=== PATIENT | male | born 1995 | race Caucasian/White ===

== ENCOUNTER 2023-03-09 01:01 | Emergency (ER) | payer OTHER, SELFPAY ==
[2023-03-09 01:06] VITALS: BP 128/64
[2023-03-09 01:19] VITALS: BMI 23.2
[2023-03-09 01:23] VITALS: BP 132/79
--- NOTE | 2023-03-09 01:23 | ED.GENMED ---
History of Present Illness
<TANIA Smith - Last Filed: 03/10/23 18:09>
General
Chief Complaint: Abdominal Pain
Source: patient
Exam Limitations: none
Time Seen by Provider: 03/09/23 01:13
Travel History
Have you had any contact with someone who has COVID-19?: No
Do you have any symptoms of coronavirus? Fever > 100 degrees, chills, cough, shortness of breath, sore throat, loss of taste or smell, muscle aches, or headache?: No
History of Present Illness
History of Present Illness:
This is a 27 year old male that is brought in by his parents with c/o left sided abd pain. States that this pain came on abruptly. States that he has pain in the left lower abd and some in the back. States that he has been vomiting and that the
pain started about 2 hours ago. Denies any fever, chills, chest pain, SOB, diarrhea, headache, dizziness, urinary burning.
Past History
<TANIA Smith - Last Filed: 03/10/23 18:09>
Past History
ED Past Medical History: Seizures and Other (Migraines)
ED Past Surgical History: Orthopedic (Left thumb surgery)
Social History
Tobacco: Former smoker
Alcohol: Occasional
Personal: Single
Living: with family
Review of Systems
<TANIA Smith - Last Filed: 03/10/23 18:09>
Review of Systems
All Other Systems: ROS reviewed and negative except as documented in HPI and ROS
Constitutional: Reports no symptoms; Denies fever or chills
EENT: Reports no symptoms
Respiratory: Reports no symptoms; Denies cough or trouble breathing
Cardiac: Reports no symptoms; Denies chest pain
ABD/GI: Reports abdominal pain, nausea and vomiting; Denies diarrhea
: Reports flank pain; Denies dysuria, frequency or urgency
Musculoskeletal: Reports no symptoms
Skin: Reports no symptoms
Neurological: Reports no symptoms; Denies dizzy or headache
Psychiatric: Reports no symptoms
Phy Exam
<TANIA Smith - Last Filed: 03/10/23 18:09>
General Physical Exam
General Presentation: moderate distress
General age: appears stated age
General Skin: warm and dry
General Habitus: normal
General Mental: alert
General Hydration: appears well hydrated
ENT Exam
ENT Exam: TM's normal, pharynx normal and neck supple
Eye Exam
Eye Exam: EOMI
Cardiovascular Exam
Cardiovascular Exam: no edema, normal peripheral pulses and bradycardia
Pulmonary Exam
Pulmonary Exam: lungs clear, no respiratory distress, no rales, chest non tender, no crackles, no rhonchi, no wheezing and no cough
Gastrointestinal Exam
Gastrointestinal Exam: soft, no organomegaly, no pulsatile mass, non distended, cva tenderness (Left sided), tender (LLQ tenderness with palpation) and other (Hypoactive bowel sounds)
Musculoskeletal Exam
Musculoskeletal Exam: full ROM and no edema
Skin Exam
Skin Exam: normal color, warm/dry, no rash and no petechia
Psychiatric Exam
Psychiatric Exam: normal mood/affect
Course
<TANIA Smith - Last Filed: 03/10/23 18:09>
Orders/Labs/Results
Orders:
Orders
03/09/23 01:22
0.9% Sodium Chloride 1000 ml [Nss] 1,000 ml IV BOLUS
HYDROmorphone [Dilaudid] 0.5 mg IV NOW STA
Ketorolac [Toradol] 30 mg IV NOW STA
Ondansetron Injectable [Zofran] 4 mg IV NOW STA
03/09/23 01:23
CT Abd/pel Without Iv Or Oral Urgent
Comment:
Reason For Exam: Left sided abd pain
03/09/23 01:30
Complete Blood Count/With Diff Urgent
Comprehensive Metabolic Panel Urgent
03/09/23 02:14
Tamsulosin [Flomax] 0.4 mg PO NOW STA
03/09/23 03:38
0.9% Sodium Chloride 500 ml [Nss] 500 ml IV BOLUS
03/09/23 04:11
HYDROmorphone [Dilaudid] 0.5 mg IV NOW STA
Ondansetron Injectable [Zofran] 4 mg IV NOW STA
03/09/23 05:19
Urinalysis Reflex To Culture Urgent
Date Specimen was Collected: 03/09/23
Time Specimen was Collected: :24
Urine Microscopic Reflex Cult Urgent
Urine Culture Urgent
HERLINDA Source: U
Specimen Description:
Date Specimen was Collected: 03/09/23
Time Specimen was Collected: :24
03/09/23 05:54
Cephalexin Monohydrate [Keflex] 500 mg PO NOW STA
Abnormal Lab Results
03/09/23 03/09/23
01:30 05:19
WBC 13.0 H 10^3/uL
(4.8-10.8)
MCH 31.8 H pg
(27.0-31.0)
MPV 10.8 H fL
(7.4-10.4)
Absolute Neuts (auto) 8.0 H 10^3/uL
(1.4-6.5)
Absolute Lymphs (auto) 4.2 H 10^3/uL
(1.2-3.4)
Absolute Monos (auto) 0.7 H 10^3/uL
(0.1-0.6)
Glucose 117 H mg/dl
(70-99)
Urine Ketones 3+ A
(Negative)
Ur Occult Blood Reflex 1+ A
(Negative)
Leukocyte Esterase Rfl Trace A
(Negative)
Urine RBC 7-10 A /HPF
(0-2)
Urine Bacteria (Reflex) Moderate A
(Negative)
03/09/23 01:30
03/09/23 01:30
Leukocytosis, Glucose nonfasting. Urine negative for infection.
Vital Signs
Initial and Last Documented VS:
Initial Vital Signs
Temp Pulse Resp Pulse Ox
98.6 F 54 18 99
03/09/23 01:04 03/09/23 01:04 03/09/23 01:04 03/09/23 01:04
Last Documented Vital Signs
Temp Pulse Resp BP Pulse Ox
98.5 F 52 16 110/62 98
03/09/23 04:21 03/09/23 06:16 03/09/23 06:16 03/09/23 06:16 03/09/23 06:16
<Bryan Miller, DO - Last Filed: 03/09/23 06:08>
Orders/Labs/Results
Orders:
Orders
03/09/23 01:22
0.9% Sodium Chloride 1000 ml [Nss] 1,000 ml IV BOLUS
HYDROmorphone [Dilaudid] 0.5 mg IV NOW STA
Ketorolac [Toradol] 30 mg IV NOW STA
Ondansetron Injectable [Zofran] 4 mg IV NOW STA
03/09/23 01:23
CT Abd/pel Without Iv Or Oral Urgent
Comment:
Reason For Exam: Left sided abd pain
03/09/23 01:30
Complete Blood Count/With Diff Urgent
Comprehensive Metabolic Panel Urgent
03/09/23 02:14
Tamsulosin [Flomax] 0.4 mg PO NOW STA
03/09/23 03:38
0.9% Sodium Chloride 500 ml [Nss] 500 ml IV BOLUS
03/09/23 04:11
HYDROmorphone [Dilaudid] 0.5 mg IV NOW STA
Ondansetron Injectable [Zofran] 4 mg IV NOW STA
03/09/23 05:19
Urinalysis Reflex To Culture Urgent
Date Specimen was Collected: 03/09/23
Time Specimen was Collected: :24
Urine Microscopic Reflex Cult Urgent
Urine Culture Urgent
HERLINDA Source: U
Specimen Description:
Date Specimen was Collected: 03/09/23
Time Specimen was Collected: :24
03/09/23 05:54
Cephalexin Monohydrate [Keflex] 500 mg PO NOW STA
Abnormal Lab Results
03/09/23 03/09/23
01:30 05:19
WBC 13.0 H 10^3/uL
(4.8-10.8)
MCH 31.8 H pg
(27.0-31.0)
MPV 10.8 H fL
(7.4-10.4)
Absolute Neuts (auto) 8.0 H 10^3/uL
(1.4-6.5)
Absolute Lymphs (auto) 4.2 H 10^3/uL
(1.2-3.4)
Absolute Monos (auto) 0.7 H 10^3/uL
(0.1-0.6)
Glucose 117 H mg/dl
(70-99)
Urine Ketones 3+ A
(Negative)
Ur Occult Blood Reflex 1+ A
(Negative)
Leukocyte Esterase Rfl Trace A
(Negative)
Urine RBC 7-10 A /HPF
(0-2)
Urine Bacteria (Reflex) Moderate A
(Negative)
03/09/23 01:30
03/09/23 01:30
Vital Signs
Initial and Last Documented VS:
Initial Vital Signs
Temp Pulse Resp Pulse Ox
98.6 F 54 18 99
03/09/23 01:04 03/09/23 01:04 03/09/23 01:04 03/09/23 01:04
Last Documented Vital Signs
Temp Pulse Resp BP Pulse Ox
98.5 F 52 16 110/62 98
03/09/23 04:21 03/09/23 06:16 03/09/23 06:16 03/09/23 06:16 03/09/23 06:16
<TANIA Smith - Last Filed: 03/10/23 18:09>
MDM/Problems Addressed
Differential Diagnosis Includes:
Renal calculus, Bowel obstruction,
MDM/Problems Addressed:
This is a 27 year old male that comes in with c/o left lower abd pain. States that the pain came on abruptly. States that he has some in the back but denies any radiation to the testicles.
Will get labs CT scan and medicate for pain. IV fluids.
Back into see patient. Explained that he has a renal calculus. Patient encouraged to increase his water intake to 8-8oz glasses daily. Will give prescription for Flomax, Toradol and Zofran. Patient can also use Tylenol 1000mg very 6hours for pain.
Patient to strain his urine and follow up with the Urologist Patient to return with fever, increased or changing pain.
Chronic conditions affecting care:
NA
Acute Exacerbation and/or Progression of Chronic Illness:
NA
<TANIA Smith - Last Filed: 03/10/23 18:09>
*Radiology
Radiology exam reviewed: radiology read reviewed (CT night hawk- There is a 3X2X2 mm clculus in the left distal ureter. Mld upstream left hydroureteronephrosis. NO additional nephroureterolithiasis. Normal firht kidney, aside from an interpolar
renal cyst. Normal urinary bladder. Otherwise, no acute abnormality on CT abd/pelvis. Specifically, ) and other (CT cont There is no bowel obstruction, appendicitis, colitis, or diverticulitis. No intraperitoneal free air or free fluid. A mild
gastroenteritis may not have a clear CT correlate, however. )
*Pulse Oximetry
Patient hypoxic: no
*EKG
Interpreted by ED Provider?: NA
Rate: EKG- N/A
*Animal Assisted Therapist Interpretation
Rate: Animal Assisted Therapist- N/A
*Critical Care Note
Total Time (30-74mins, 75-104mins- exclusive of procedures): Not Applicable
ED Attending Note
<TANIA Smith - Last Filed: 03/10/23 18:09>
-
Portions of this chart may have been created with voice recognition software.� Occasional wrong word or��sound alike� substitutions may have occurred due to the inherent limitations of voice recognition software.
<Bryan Miller DO - Last Filed: 03/09/23 06:08>
ED Attending Note
Patient seen and examined by attending physician: Yes
I performed the substantive portion of visit, reviewed & personally made and approve the management plan that is documented in note by myself or CHITO.: Yes
ED Attending Note:
27-year-old male with a kidney stone on the left. Denies fever but does report nausea with vomiting. Patient was seen in conjunction with the nurse practitioner. I have reviewed and agree with the history and treatment plan presented. On my
independent physical exam, patient is awake, alert, and oriented x3, resting comfortably. Minimal to no acute distress after fluids and pain meds were given. No respiratory distress. Urine is uncontaminated has signs of UTI. Given that he has a
kidney stone we will provide antibiotic. All prescriptions were sent to the pharmacy.
Discharge Plan
Departure
Patient Disposition: Home (Routine Discharge)
Date of Disposition: 03/09/23
Time of Disposition: 05:56
Patient with high blood pressure during this ER visit?: Yes
Condition: Good
Covid-19: Not Applicable
Discharge Problem:
Renal calculus, left
Instructions: Renal Colic (DC), How to Strain Your Urine, BLOOD PRESSURE
Prescriptions:
New
ondansetron 4 mg tablet,disintegrating
4 mg PO Q8H PRN (Reason: nausea and vomiting) Qty: 7 0RF
tamsulosin [Flomax] 0.4 mg capsule
0.4 mg PO HS Qty: 7 0RF
ketorolac 10 mg tablet
10 mg PO Q8H PRN (Reason: Pain) Qty: 14 0RF
cephalexin 250 mg capsule
250 mg PO Q6H 10 Days Qty: 40 0RF
No Action
No Current Medications
Referrals:
Julio Cesar Carmen MD [Active] - Follow up in 5-7 days
Stand Alone Forms: Return to Work
Activity Restrictions/Additional Instructions:
As discussed, you have a left renal calculus that is almost to the bladder. Please increase your water intake to 8-8oz glasses daily. You have had three prescription sent to your Pharmacy. The first is for Flomax that will help relax the smooth
muscle so you can pass the stone. The Second is Zofran that will help with any nausea/vomiting and the last is Toradol to help with pain. You may also take Tylenol 1000mg every 6 hours for pain. Please stray your urine. Follow up with the Urologist
in the next 5-7 days. IF YOU HAVE ANY FEVER, PAIN THAT IS NOT CONTROLLED, VOMITING NOT CONTROLLED OR YOU HAVE ANY OTHER CONCERNS PLEASE RETURN TO THE EMERGENCY ROOM.
Interventions
Interventions:
*Risk Screen - Suicide Last Done: 03/09/23 06:16
*General Assessment Last Done: 03/09/23 01:36
*Neglect/Abuse Screening Last Done: 03/09/23 06:16
ED- Fall Risk Assessment Last Done: 03/09/23 01:36
*ED COVID-19 Vaccine History Last Done: 03/09/23 01:36
*Nursing Disposition Last Done: 03/09/23 06:16
BE-Awjrnu-Vbeflemnxt Assessment Last Done: 03/09/23 01:36
Discharge Date and Time
Discharge Date/Time: 03/09/23 06:21
[2023-03-09] MEDS: ZOFRAN 4 MG IV ×2 (01:26→04:16)
[2023-03-09] MEDS: NSS 1000 IV (01:26)
[2023-03-09] MEDS: TORADOL 30 MG IV (01:27)
[2023-03-09] MEDS: DILAUDID 0.5 MG IV ×2 (01:28→04:16)
[2023-03-09 01:52] LABS: % Basophils 0.5 % (0-2); % Eosinophils 0.8 % (0-6); % Immature Granulocytes 0.2 % (0-0.5); % Lymphocytes 32.1 % (20.5-51.1); % Monocytes 5.1 % (1.7-9.3); % Neutrophils 61.3 % (42.2-75.2); Absolute Basophils 0.1 10^3/uL (0-0.2); Absolute Eosinophils 0.1 10^3/uL (0-0.7); Absolute Lymphocytes 4.2 10^3/uL (1.2-3.4); Absolute Monocytes 0.7 10^3/uL (0.1-0.6); Hematocrit 44.2 % (39.0-52.0); Hemoglobin 16.2 g/dL (13.0-18.0); Mean Corp Hgb Conc. 36.7 g/dL (33.0-37.0); Mean Corpuscular Hgb 31.8 pg (27.0-31.0); Mean Corpuscular Volume 86.8 fL (80.0-94.0); Mean Platelet Volume 10.8 fL (7.4-10.4); Nucleated Red Blood Cells % 0 % (-); Platelet Count 217 10^3/uL (130-400); Red Blood Cell Count 5.09 10^6/uL (4.70-6.10); Red Cell Dist. Width 11.9 % (11.5-14.5)
[2023-03-09] MEDS: FLOMAX 0.400000000000000022 MG PO (02:22)
[2023-03-09 02:25] LABS: ALT (SGPT) 17 U/L (0-50); AST (SGOT) 24 U/L (17-59); Albumin 4.4 g/dl (3.5-5.0); Alkaline Phosphatase 58 U/L (38-126); Blood Urea Nitrogen 20 mg/dl (9-20); Calcium 9.5 mg/dl (8.4-10.2); Carbon Dioxide 30 mmol/L (22-30); Chloride 99 mmol/L (98-107); Estimated Creatinine Clearance > 125 ml/min; Glucose 117 mg/dl (70-99); Potassium 3.8 mmol/L (3.5-5.1); Sodium 141 mmol/L (135-145); Total Protein 6.7 g/dl (6.3-8.2); eGFR > 60.00
[2023-03-09] MEDS: NSS 500 IV (03:39)
[2023-03-09 04:07] VITALS: BP 127/74
[2023-03-09 04:21] VITALS: BP 127/74
[2023-03-09 05:42] LABS: Urine Albumin Trace (Neg - Trace); Urine Bilirubin Negative (Negative); Urine Character Slightly Cloudy (Clear); Urine Color Yellow; Urine Glucose Negative (Negative); Urine Ketone 3+ (Negative); Urine Leukocyte Trace (Negative); Urine Nitrite Negative (Negative); Urine Occult Blood 1+ (Negative); Urine Specific Gravity 1.015 (<1.030); Urine Urobilinogen 1+ (Neg - 1+)
[2023-03-09 05:52] LABS: Urine Amorphous Seen; Urine Bacteria Moderate (Negative); Urine Squamous Cell 0-2 /LPF (Few)
[2023-03-09] MEDS: KEFLEX 500 MG PO (06:05)
[2023-03-09 06:16] VITALS: BP 110/62
== END 2023-03-09 06:21 | disposition home or self-care (01) ==
LOC: EMR 01:01
PROVIDERS: Clinical Nurse Specialist Family Health; EMERGENCY PHYSICIAN Student in an Organized Health Care Education/Training Program
DX: N20.0 Calculus of kidney (principal); N28.1 Cyst of kidney, acquired; D72.829 Elevated white blood cell count, unspecified; R03.0 Elevated blood-pressure reading, without diagnosis of hypertension; Z87.891 Personal history of nicotine dependence
CPT/HCPCS: 99284; 96374; 96375 ×2; 96361; 96376 ×2; 51701; 51798; 74176; 80053; 81003; 81015; 85025; 87086